=== PATIENT | female | born 1985 | race Caucasian/White ===

== ENCOUNTER 2018-01-08 23:07 | Emergency (ER) | payer OTHER ==
[~2018-01-08] VITALS: Ht 165.1 cm; Wt 82.4 kg
[~2018-01-08 23:07] MED LIST: ATARAX,VISTARIL50 MG PO; BACTRIM,SEPT1 TABLET PO; CYCLOBENZAPRINE10 MG PO; DOXYCYCLINE HY100 MG PO; HYDROCODON-ACE1 EAC7 PO; IBUPROFEN600 MG PO; KEFLEX500 MG PO; LAMISIL AT12 GM TP; NO HOME MEDS; NORCO 5/3251 TABLET PO; PHENERGAN25 MG PR; PREDNISONE20 MG PO; PROMETHAZINE HC25 M1 PO; ZANTAC150 MG PO; ZANTAC300 MG PO; ZITHROMAX500 MG PO
[2018-01-09 05:47] VITALS: BP 135/70
== END 2018-01-09 05:49 | disposition home or self-care (01) ==
LOC: EME 23:07
DX: S80.02XA Contusion of left knee, initial encounter (principal); S60.211A Contusion of right wrist, initial encounter; S30.0XXA Contusion of lower back and pelvis, initial encounter; W01.0XXA Fall on same level from slipping, tripping and stumbling without subsequent striking against object, initial encounter; M54.9 Dorsalgia, unspecified; G89.29 Other chronic pain; F17.200 Nicotine dependence, unspecified, uncomplicated; Z98.51 Tubal ligation status; Z88.6 Allergy status to analgesic agent
CPT/HCPCS: 71046; 72100; 73110; 73564